=== PATIENT | female | born 1965 | race Caucasian/White ===

== ENCOUNTER 2023-01-27 12:47 | Emergency (ER) | payer BC ==
[~2023-01-27] VITALS: Ht 157.5 cm; Wt 84.1 kg
[2023-01-27 12:57] VITALS: TEMP 97.6
[2023-01-27 13:42] LABS: COLLECTION METHOD CLEAN CATCH
[2023-01-27 13:56] LABS: MUCOUS Present (NOT PRESENT); URINE BACTERIA Rare /hpf (NONE SEEN)
[2023-01-27 13:59] LABS: URINE APPEARANCE Hazy (CLEAR/HAZY); URINE BLOOD Negative (NEGATIVE); URINE COLOR Yellow (YELLOW); URINE GLUCOSE 2+ (NEGATIVE); URINE KETONE Negative (NEGATIVE); URINE NITRATE Negative (NEGATIVE); URINE PROTEIN(semi-quant) Negative (NEGATIVE); URINE UROBILINOGEN 0.2 E.U/dL (0.2-1.0)
[2023-01-27] MEDS ORDERED: FLAGYL500 MG PO (15:01)
[2023-01-27 15:11] VITALS: BP 114/68; PULSE 77
== END 2023-01-27 15:13 | disposition home or self-care (01) ==
LOC: COL.ER 12:47
PROVIDERS: Nurse Practitioner
DX: S92.531A Displaced fracture of distal phalanx of right lesser toe(s), initial encounter for closed fracture (principal); N76.0 Acute vaginitis; Z87.891 Personal history of nicotine dependence; W20.8XXA Other cause of strike by thrown, projected or falling object, initial encounter